=== PATIENT | male | born 1970 | race Caucasian/White ===

== ENCOUNTER 2016-12-01 14:31 | Emergency (ER) | payer OTHER ==
[~2016-12-01] VITALS: Ht 182.9 cm; Wt 117.0 kg
[~2016-12-01 14:31] MED LIST: ALKA-SELTZER P1 EAC6 PO; ASPIR-LOW81 MG PO; BENADRYL50 MG PO; BENTYL10 MG PO; CARISOPRODOL350 MG PO; CIPROFLOXACIN500 M1 PO; COMPAZINE10 MG PO; DICYCLOMINE HCL20 MG PO; DILAUDID4 MG PO; DILAUDID8 MG PO; DOLOPHINE HCL10 MG PO; FLOMAX0.4 M1 PO; FLOMAX0.4 MG PO; HYDROMORPHONE HC4 MG PO; HYDROMORPHONE HC8 MG PO; LOPRESSOR25 MG PO; METAMUCIL PACKE1 PKT PO; METHADONE10 MG; METHADONE10 MG PO; METOPROLOL TART25 MG PO; METRONIDAZOLE500 MG PO; NO HOME MEDS; NOHOMEMEDS; OXYCODONE HCL30 MG; OXYCODONE HCL30 MG PO; OxyCODONE PO; PROTONIX40 MG PO; SIMVASTATIN20 MG PO; SOMA350 MG PO; SULFAMETHOXAZO1 EAC4 PO; TESTOSTERONE PO; ZOFRAN ODT4 MG PO; [UNRECOGNIZED DRUG - OTHER]
[2016-12-01 16:26] VITALS: BP 128/77
== END 2016-12-01 16:27 | disposition home or self-care (01) ==
LOC: EME 14:31
DX: S61.213A Laceration without foreign body of left middle finger without damage to nail, initial encounter (principal); W31.2XXA Contact with powered woodworking and forming machines, initial encounter; Y93.89 Activity, other specified
CPT/HCPCS: 99281; 99284; S0020

== ENCOUNTER 2017-02-15 23:30 | Emergency (ER) | payer OTHER ==
[~2017-02-15] VITALS: Ht 182.9 cm; Wt 113.0 kg
[2017-02-16 00:34] LABS: HEMATOCRIT 43.5 % (38.0-50.0); MCH 28.9 PG (29.0-34.0); MCHC 33.3 G/DL (30.0-36.0); MCV 86.7 FL (86-99); MEAN PLAT.VOLUME 8.9 uM^3 (9.0-12.4); PLATELET COUNT 312 K/uL (156-360); RBC DIS.WIDTH-CV 13.4 % (11.8-14.6); RBC DIS.WIDTH-SD 42.3 % (39-53); RED BLOOD COUNT 5.02 M/uL (4.00-5.50); WHITE BLOOD COUNT 8.7 K/uL (4.1-10.2)
[2017-02-16 00:42] LABS: CHLORIDE 109 mEq/L (99-109)
[2017-02-16 00:43] LABS: POTASSIUM 3.3 mEq/L (3.7-5.4); SODIUM 141 mEq/L (136-147)
[2017-02-16 00:44] LABS: GLUCOSE 126 mg/dL (70-99)
[2017-02-16 00:46] LABS: ANION GAP 8 MEQ/L (2-14)
[2017-02-16 00:48] LABS: GFR ESTIMATE (CALCULATED) > 59 mL/min/
[2017-02-16 00:49] LABS: UREA NITROGEN (BUN) 9 mg/dL (9-23)
[2017-02-16 00:54] LABS: TROP-I INTERPRETATION NEGATIVE; TROPONIN-I < 0.01 ng/mL (0.0-0.30)
[2017-02-16 02:40] LABS: TROP-I INTERPRETATION NEGATIVE; TROPONIN-I < 0.01 ng/mL (0.0-0.30)
[2017-02-16] MEDS ORDERED: DILAUDID2 MG PO (03:03)
[2017-02-16 03:50] VITALS: BP 147/98
== END 2017-02-16 03:50 | disposition home or self-care (01) ==
LOC: EME 23:30
PROVIDERS: Emergency Medicine
DX: R07.89 Other chest pain (principal); R51 Headache; R56.9 Unspecified convulsions; Z98.2 Presence of cerebrospinal fluid drainage device; Z87.820 Personal history of traumatic brain injury; Z88.0 Allergy status to penicillin; Z79.891 Long term (current) use of opiate analgesic
CPT/HCPCS: 70450; 71020; 80048; 83880; 84484; 85027; 93005; 99281; 99284

== ENCOUNTER 2017-08-09 20:10 | Emergency (ER) | payer OTHER ==
[~2017-08-09] VITALS: Ht 182.9 cm; Wt 109.9 kg
[~2017-08-09 20:10] MED LIST changes: +DILAUDID2 MG PO
[2017-08-09 22:38] VITALS: BP 160/98
== END 2017-08-09 22:38 | disposition home or self-care (01) ==
LOC: EME 20:10
DX: S06.0X0A Concussion without loss of consciousness, initial encounter (principal); S33.5XXA Sprain of ligaments of lumbar spine, initial encounter; S39.012A Strain of muscle, fascia and tendon of lower back, initial encounter; M25.519 Pain in unspecified shoulder; M79.606 Pain in leg, unspecified; V49.40XA Driver injured in collision with unspecified motor vehicles in traffic accident, initial encounter; Y92.410 Unspecified street and highway as the place of occurrence of the external cause; Z87.820 Personal history of traumatic brain injury; Z98.2 Presence of cerebrospinal fluid drainage device
CPT/HCPCS: 70450; 72110; 99281; 99283